=== PATIENT | female | born 1990 | race Caucasian/White ===

== ENCOUNTER → 2016-08-24 | Outpatient (CLI) | payer OTHER ==
[2016-08-24 19:52] VITALS: BP 103/68
== END ==
LOC: MHUC 16:52
PROVIDERS: ATTEND Physician Assistant
DX: B34.9 Viral infection, unspecified (principal)
CPT/HCPCS: 87880; 99213

== ENCOUNTER → 2016-08-24 | Outpatient (CLI) | payer OTHER ==
[2016-08-24 18:26] LABS: MEAN CORPUSCULAR HEMOGLOBIN 30.8 PG (26.0-34.0); MEAN CORPUSCULAR HGB CONC 34.5 g/dL (31.0-37.0); MEAN CORPUSCULAR VOLUME 89 FL (80-100); MEAN PLATELET VOLUME 9.3 FL (6.0-9.5); PLATELET COUNT 231 10^3uL (150-450); WHITE BLOOD COUNT 7.03 10^3uL (4.0-11.0)
[2016-08-24 18:37] LABS: BAND NEUTROPHILS % 1 % (0-6); EOSINOPHILS % 2 % (0-4); LYMPHOCYTES # 3.2 #; MONOCYTES # 0.3 #; MONOCYTES % 4 % (3-11); SEGMENTED NEUTROPHILS % 48 % (51-67); TOTAL CELLS COUNTED 100
[2016-08-24 18:38] LABS: RBC MORPH NORMAL (NORMAL)
== END ==
LOC: LAB 18:12
PROVIDERS: ATTEND Physician Assistant
DX: R50.9 Fever, unspecified (principal); R53.83 Other fatigue
CPT/HCPCS: 36415; 85007; 85027; 86140

== ENCOUNTER → 2016-09-01 | Outpatient (CLI) | payer OTHER ==
[2016-09-01 18:08] VITALS: BP 110/68
== END ==
LOC: MHUC 17:39
PROVIDERS: ATTEND Physician Assistant Medical
DX: J02.0 Streptococcal pharyngitis (principal)